=== PATIENT | male | born 1980 | race Caucasian/White ===

== ENCOUNTER → 2017-12-20 | Outpatient (CLI) | payer OTHER ==
[2017-12-20 17:31] LABS: BASO % 0.4 %; BASO ABS # 0.03 K/uL (0-0.2); EOS % 3.3 %; EOS ABS # 0.27 K/uL (0-0.5); HEMATOCRIT 45.8 % (42-52); HEMOGLOBIN 15.1 g/dL (14.0-18.0); IG# 0.04 K/uL (0.00-0.02); LYMPH ABS # 3.32 K/uL (1.2-3.4); MEAN CELL VOLUME 87.1 fL (80-100); MEAN CORPUSCULAR HEMOGLOBIN 28.7 pg (25-34); MEAN PLATELET VOLUME 9.4 fL (7.4-10.4); MONO % 13.3 %; NEUT % 42.5 %; NEUT ABS # 3.54 K/uL (1.4-6.5); PLATELET COUNT 285 K/uL (130-400); RED CELL DISTRIBUTION WIDTH CV 13.4 % (11.5-14.5); RED CELL DISTRIBUTION WIDTH SD 42.2 fL (36.4-46.3)
[2017-12-20 17:38] LABS: ALBUMIN 3.6 gm/dl (3.4-5.0); ALT/SGPT 28 U/L (12-78); AST/SGOT 21 U/L (15-37); BLOOD UREA NITROGEN 12 mg/dl (7-18); CALCIUM 8.8 mg/dl (8.5-10.1); CARBON DIOXIDE 27 mmol/L (21-32); CREATININE 0.85 mg/dl (0.60-1.40); GLUCOSE 99 mg/dl (70-99); SODIUM 139 mmol/L (136-145)
[2017-12-20 17:48] LABS: ALKALINE PHOSPHATASE 73 U/L (45-117); TOTAL PROTEIN 7.3 gm/dl (6.4-8.2)
== END | disposition home or self-care (01) ==
LOC: C.LABPVFM 13:10
PROVIDERS: ATTEND Family Medicine
DX: R60.0 Localized edema (principal)

== ENCOUNTER → 2018-05-25 | Outpatient (CLI) | payer OTHER | END | disposition home or self-care (01) | LOC: C.PATHSPEC 17:05 | PROVIDERS: ATTEND Surgery | DX: D17.9 Benign lipomatous neoplasm, unspecified (principal) ==